=== PATIENT | male | born 2000 | race Caucasian/White ===

== ENCOUNTER 2019-10-22 10:22 | Emergency (ER) | payer OTHER ==
--- NOTE | 2019-10-22 10:27 | PDOC ---
History of Present Illness - General Chief Complaint: Syncope/Near Syncope Stated Complaint: Syncope/Near Syncope Time Seen by Provider: 10/22/19 10:25 History Source: Patient Exam Limitations: No Limitations - History of Present Illness Initial Comments: 10/22/19 10:27 HPI: 19 yo M no significant PMH presenting s/p syncopal episode while getting blood drawn in upstairs lab. Patient felt nauseous and lightheaded during phlebotomy draw upstairs. Denies any other symptoms, no prodrome besides feeling anxious. Endorses multiple prior episodes of syncope during blood draws. Denies any syncope at any other time - no CV or Neuro history. No FHx of early cardiac deaths. No personal history of diabetes, normal fingerstick drawn in phlebotomy. Denies palpitations, tightness, chest pain, or SOB. Returned immediately to baseline after the event with transient blurred vision. NKDA Meds: denies PMH: Cyclical Vomiting Syndrome PSH: Appendectomy Past History - Past Medical History Allergies/Adverse Reactions: Allergies Allergy/AdvReac Type Severity Reaction Status Date / Time No Known Drug Allergies Allergy Verified 10/22/19 10:30 Home Medications: Ambulatory Orders Carbamide Peroxide 6.5% [Debrox -] 5 drop AD BID #1 bottle 09/26/16 - Surgical History Appendectomy: Yes - Psycho Social/Smoking Cessation Hx Smoking Status: No Smoking History: Never smoked Number of Cigarettes Smoked Daily: 0 Hx Alcohol Use: No Drug/Substance Use Hx: No Hx Substance Use Treatment: No Review of Systems - Review of Systems Able to Perform ROS?: Yes Is the patient limited Frisian proficient: Yes Constitutional: No: Chills, Fever, Weakness HEENTM: No: Recent change in vision, Nose Congestion, Throat Pain Respiratory: No: Cough, Shortness of Breath, Wheezing Cardiac (ROS): Yes: See HPI, Syncope. No: Chest Pain, Irregular Heart Rate, Lightheadedness, Palpitations, Chest Tightness ABD/GI: Yes: Nausea (chronic), Vomiting (chronic). No: Constipated, Diarrhea : No: Burning, Dysuria, Discharge, Frequency Musculoskeletal: No: Muscle Pain, Muscle Weakness Integumentary: No: Bruising, Pruritus, Rash Neurological: No: Headache, Numbness, Tingling, Weakness Psychiatric: No: Stressors, Change in Appetite Endocrine: No: Increased Hunger, Increased Thirst, Increased Urine, Change in Weight Hematologic/Lymphatic: No: Anemia, Blood Clots, Easy Bleeding All Other Systems: Reviewed and Negative *Physical Exam - Physical Exam 10/22/19 11:02 Vitals reviewed, AFVSS GEN: Well appearing, appears stated age, NAD, comfortable. AAOx3. HEENT: NCAT, EOMI, PERRL. Sclera anicteric, noninjected. No facial asymmetry. Moist mucous membranes. Normal voice. Trachea midline. CV: RRR, S1/S2, no murmurs / rubs / gallops appreciated. LUNG: CTAB, normal work of breathing. No wheezes, rales, rhonchi. No cough. Speaking full sentences. GI: Soft, NTND, +BS, no guarding, no rebound. No masses. Neg CVAT b/l. EXTREMITIES: 2+ distal pulses. No LE edema. No obvious deformities of all extremities. SKIN: Warm, dry, no rashes appreciated, non-jaundiced. PSYCH: Normal mood and affect. Cooperative and appropriate. NEURO: CN grossly intact. Moving all extremities well. Normal strength and sensation grossly. Medical Decision Making - Medical Decision Making 10/22/19 10:27 19 yo M no significant PMH presenting s/p syncopal episode while getting blood drawn in upstairs lab. Story consistent with vasovagal syncope in patient with prior episodes of vasovagal syncope in the same setting. Physical exam unremarkable, vitals within normal limits. BGM was within normal limits. No concerning FHx, personal history, or features. HOC< - EK BPM, normal sinus rhythm, normal axis, QTc 367, normal narrow QRS, normal (poor quality) EKG without signs of hypertrophy. - Will obtain repeat for ST / T assessment. 10/22/19 11:29 Repeat EKbpm, NSRm, normal axis, normal intervals, no ischemic changes or T inversions, normal EKG Dispo: Home Discharge - Discharge Information Problems reviewed: Yes Clinical Impression/Diagnosis: Vaso vagal episode Condition: Improved Disposition: HOME - Admission No - Follow up/Referral Referrals: Cassandra Gamino MD [Primary Care Provider] - - Patient Discharge Instructions Patient Printed Discharge Instructions: DI for Syncope in Adults (Fainting) Additional Instructions: You were seen in the ER for passing out. Please follow up with your primary care provider as scheduled. Call 911 or return to the nearest ED for any new or concerning symptoms which include but are not limited to: chest pain or tightness, lightheadedness, palpitations, additional episodes of passing out. - Post Discharge Activity
[2019-10-22 10:30] VITALS: BP 112/49; PULSE 63; TEMP 97.4; BMI 20.9
--- NOTE | 2019-10-22 11:50 | EKG ---
Test Reason : Blood Pressure : / mmHG Vent. Rate : 060 BPM Atrial Rate : 060 BPM P-R Int : 138 ms QRS Dur : 086 ms QT Int : 364 ms P-R-T Axes : 053 053 029 degrees QTc Int : 364 ms NORMAL SINUS RHYTHM NORMAL ECG NO PREVIOUS ECGS AVAILABLE Confirmed by CANELO ROSALES MD ([id number]) on 10/22/2019 11:50:28 AM Referred By: Confirmed By:CANELO ROSALES MD
--- NOTE | 2019-10-22 12:01 | PDOC ---
Documentation entered by Johanny Bianchi SCRIBE, acting as scribe for Nela Meier MD. Nela Meier MD: This documentation has been prepared by the Arias hernandez Brenda, SCRIBE, under my direction and personally reviewed by me in its entirety. I confirm that the documentation accurately reflects all work, treatment, procedures, and medical decision making performed by me. Attending Attestation - Resident Resident Name: FranciscoAdonay - ED Attending Attestation I have performed the following: I have examined & evaluated the patient, The case was reviewed & discussed with the resident, I agree w/resident's findings & plan, Exceptions are as noted - HPI HPI: 10/22/19 10:47 The patient is a 19 year old male, with no significant PMH who presents to the emergency department for evaluation of a syncopal episode while getting blood drawn in the [facility] outpatient lab. Patient reports feeling nauseas and lightheaded during the blood draw. Patient reports similar episodes while getting blood drawn previously. The patient denies chest pain, shortness of breath. Denies fever, chills, vomiting, diarrhea and constipation. Denies any urinary symptoms. Allergies: NKA Surgical Hx: Appendectomy Social history: No reported hx of tobacco use, alcohol use or illicit drug use. PCP: Cassandra Gamino - Physicial Exam PE: 10/22/19 10:46 GENERAL: Awake, alert, and fully oriented, in no acute distress HEAD: No signs of trauma EYES: PERRLA, EOMI, sclera anicteric, conjunctiva clear ENT: Auricles normal inspection, hearing grossly normal, nares patent, oropharynx clear without exudates. Moist mucosa NECK: Normal ROM, supple, no lymphadenopathy, JVD, or masses LUNGS: Breath sounds equal, clear to auscultation bilaterally. No wheezes, and no crackles HEART: Regular rate and rhythm, normal S1 and S2, no murmurs, rubs or gallops ABDOMEN: Soft, nontender, normoactive bowel sounds. No guarding, no rebound. No masses EXTREMITIES: Normal range of motion, no edema. No clubbing or cyanosis. No cords, erythema, or tenderness NEUROLOGICAL: Cranial nerves II through XII grossly intact. Normal speech, normal gait SKIN: Warm, Dry, normal turgor, no rashes or lesions noted. - Medical Decision Making Pt with syncopal event while having blood drawn. He has had similar events in the past. Denies cp, SOB, leg swelling. EKG wnl. Stable for DC home. Likely vasovagal.
== END 2019-10-22 12:00 | disposition home or self-care (01) ==
LOC: JER 10:22
DX: R55 Syncope and collapse (principal)
CPT/HCPCS: 93005; 93010; 99282-25